=== PATIENT | female | born 1960 | race Caucasian/White ===

== ENCOUNTER 2021-07-15 04:56 | Inpatient (IN) | payer MEDICAID ==
[~2021-07-15] VITALS: Ht 162.6 cm; Wt 65.0 kg
[~2021-07-15 04:56] MED LIST: ACET325T21 PO; ACET325T9 PO; ASPI81TA59 PO; ATOR40TA PO; AZIT1PAC PO; CALC-380 PO; DIVA250T PO; LEVE250T30 PO; MELA3TAB43 PO; MODA200T2 PO; MULT1TAB6 PO; ONDA4TAB7 PO; OXYC5TAB4 PO; QUET25TA5 PO; SACC250C8 PO; SENN1TAB62 PO; SENN8.6T99 PO; SERT50TA PO; VENL75TA PO
[2021-07-15] MEDS ORDERED: ONDANSETRON PF 4 MG/2 ML VIAL. IVP ONE (05:15)
[2021-07-15] MEDS ORDERED: fentaNYL PF VIAL 100 MCG/2 ML VIAL IVP ONE (05:15)
[2021-07-15] MEDS ORDERED: IV NORMAL SALINE 1000ML BAG 1,000 ML IV ONE ×2 (05:15→10:45)
[2021-07-15 05:18] LABS: BASO # 0.1 x10^3/uL (0.0-0.2); BASO % 1 % (0-3); EOS % 0 % (0-3); HEMATOCRIT 42.8 % (36.0-47.0); HEMOGLOBIN 13.8 g/dL (12.0-15.5); LYMPH # 1.4 x10^3/uL (1.0-4.8); LYMPH % 12 % (24-48); MEAN CORPUSCULAR HEMOGLOBIN 29 pg (25-35); MEAN CORPUSCULAR HGB CONC 32 g/dL (31-37); MEAN CORPUSCULAR VOLUME 90 fL (79-100); MONO # 0.7 x10^3/uL (0.0-1.1); MONO % 6 % (0-9); NEUT # 10.2 x10^3/uL (1.8-7.7); NEUT % 82 % (31-73); PLATELET COUNT 308 x10^3/uL (140-400); RED BLOOD COUNT 4.74 x10^6/uL (3.50-5.40); RED CELL DISTRIBUTION WIDTH 13.7 % (11.5-14.5); WHITE BLOOD COUNT 12.4 x10^3/uL (4.0-11.0)
[2021-07-15 05:28] LABS: FECAL OB PT NEGATIVE (NEG)
[2021-07-15 05:32] LABS: CALCIUM 9.3 mg/dL (8.5-10.1); GFR 56.2; POTASSIUM 3.7 mmol/L (3.5-5.1)
[2021-07-15 05:39] LABS: ALBUMIN 3.8 g/dL (3.4-5.0); ALBUMIN/GLOBULIN RATIO 0.8 (1.0-1.7); TOTAL BILIRUBIN 0.4 mg/dL (0.2-1.0); TOTAL PROTEIN 8.3 g/dL (6.4-8.2)
--- NOTE | 2021-07-15 05:40 | EKG ---
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
[2021-07-15] MEDS ORDERED: CONTRAST GIVEN. MC PRN (06:00)
[2021-07-15] MEDS ORDERED: ASPIRIN CHEWABLE 81 MG TABLET. PO ONE (06:00)
[2021-07-15] MEDS ORDERED: IOHEXOL 300 MG/ML 100ML VIAL. IV ONE (06:00)
--- NOTE | 2021-07-15 06:09 | PHYS DOC ---
Past Medical History Past Medical History: High Cholesterol, Hypertension Additional Past Medical Histor: ADHD,SUBARACHNOID HEMORRAGE, MRSA Past Surgical History: Other Additional Past Surgical Histo: Laparotomy Smoking Status: Never Smoker Alcohol Use: None Drug Use: None Adult General Chief Complaint Chief Complaint: NAUSEA/VOMITING/DIARRHEA HPI HPI The patient is a 61-year-old female with a history of hyperlipidemia, seizure disorder and depression. She resides in a nursing facility. She presents for evaluation of copious nonbloody vomiting with onset about 24 hours ago. Has vomited greater than 10 times in total. Nursing facility staff felt that vomiting might have intermittently been bloody but patient denies this. Associated focal epigastric discomfort, intermittent and nonradiating. No associated fevers, hematemesis, hematochezia or melena, upper respiratory congestion/rhinorrhea, cough, sore throat, shortness of breath or chest pain of any kind, flank pain, midline back pain, right-sided or lower abdominal pain of any kind, dysuria, hematuria, polyuria or oliguria, changes in bowel habits, pain or swelling to arms or legs. Patient is alert and pleasantly and appropriately interactive, in no acute distress with appropriate vital signs upon initial evaluation here in the emergency department. Review of Systems Review of Systems A 12 point review of systems was completed and was negative except where noted in HPI above. Current Medications Current Medications Current Medications Medications (Trade) Dose Ordered Sig/Abhinav Start Time Stop Time Status Last Admin Dose Admin Aspirin (Aspirin Chewable) 324 mg 1X ONCE 07/15/21 06:00 07/15/21 06:01 Fentanyl Citrate (Fentanyl 2ml Vial) 50 mcg 1X ONCE 07/15/21 05:15 07/15/21 05:16 DC Info (CONTRAST GIVEN -- Rx MONITORING) 1 each PRN DAILY PRN 07/15/21 06:00 07/17/21 05:59 Iohexol (Omnipaque 300 Mg/ml) 60 ml 1X ONCE 07/15/21 06:00 07/15/21 06:01 07/15/21 05:57 60 ML Ondansetron HCl (Zofran) 4 mg 1X ONCE 07/15/21 05:15 07/15/21 05:16 DC 07/15/21 05:15 4 MG Sodium Chloride 1,000 ml @ 1,000 mls/hr 1X ONCE 07/15/21 05:15 07/15/21 06:14 07/15/21 05:15 1,000 MLS/HR Allergies Allergies Allergies Coded Allergies Type Severity Reaction Last Updated Verified codeine Allergy Intermediate 01/22/21 Yes Physical Exam Physical Exam Elderly female appearing nontoxic and in no acute distress. Head is normocephalic and atraumatic. Neck is supple and nontender. Oropharynx is moist. Lungs are clear to auscultation at all stations. There is a normal S1 and S2 without rubs or gallops and capillary refill is appropriate, less than 2 seconds globally. Abdomen is soft, nondistended and with mild focal epigastric tenderness to palpation without rebound or guarding. No right-sided or lower quadrant tenderness to palpation. Skin is warm and dry without cyanosis, clubbing or edema. Psychiatrically, the patient demonstrates appropriate mood and affect and is alert. Current Patient Data Vital Signs Vital Signs Date Time Temp Pulse Resp B/P (MAP) Pulse Ox O2 Delivery O2 Flow Rate FiO2 07/15/21 05:00 98.6 108 15 157/98 (117) 98 Room Air 98.6 Lab Values Laboratory Tests Test 07/15/21 05:05 07/15/21 05:09 Stool Occult Blood Negative (NEG) White Blood Count 12.4 x10^3/uL (4.0-11.0) H Red Blood Count 4.74 x10^6/uL (3.50-5.40) Hemoglobin 13.8 g/dL (12.0-15.5) Hematocrit 42.8 % (36.0-47.0) Mean Corpuscular Volume 90 fL (79-100) Mean Corpuscular Hemoglobin 29 pg (25-35) Mean Corpuscular Hemoglobin Concent 32 g/dL (31-37) Red Cell Distribution Width 13.7 % (11.5-14.5) Platelet Count 308 x10^3/uL (140-400) Neutrophils (%) (Auto) 82 % (31-73) H Lymphocytes (%) (Auto) 12 % (24-48) L Monocytes (%) (Auto) 6 % (0-9) Eosinophils (%) (Auto) 0 % (0-3) Basophils (%) (Auto) 1 % (0-3) Neutrophils # (Auto) 10.2 x10^3/uL (1.8-7.7) H Lymphocytes # (Auto) 1.4 x10^3/uL (1.0-4.8) Monocytes # (Auto) 0.7 x10^3/uL (0.0-1.1) Eosinophils # (Auto) 0.0 x10^3/uL (0.0-0.7) Basophils # (Auto) 0.1 x10^3/uL (0.0-0.2) Sodium Level 144 mmol/L (136-145) Potassium Level 3.7 mmol/L (3.5-5.1) Chloride Level 101 mmol/L (98-107) Carbon Dioxide Level 28 mmol/L (21-32) Anion Gap 15 (6-14) H Blood Urea Nitrogen 23 mg/dL (7-20) H Creatinine 1.0 mg/dL (0.6-1.0) Estimated GFR (Cockcroft-Gault) 56.2 BUN/Creatinine Ratio 23 (6-20) H Glucose Level 160 mg/dL (70-99) H Lactic Acid Level 2.1 mmol/L (0.4-2.0) H Calcium Level 9.3 mg/dL (8.5-10.1) Total Bilirubin 0.4 mg/dL (0.2-1.0) Aspartate Amino Transferase (AST) 12 U/L (15-37) L Alanine Aminotransferase (ALT) 22 U/L (14-59) Alkaline Phosphatase 107 U/L (46-116) Troponin I High Sensitivity 148 ng/L (4-50) H Total Protein 8.3 g/dL (6.4-8.2) H Albumin 3.8 g/dL (3.4-5.0) Albumin/Globulin Ratio 0.8 (1.0-1.7) L Lipase 1057 U/L (73-393) H Laboratory Tests 07/15/21 05:09 Laboratory Tests 07/15/21 05:09 EKG EKG Sinus rhythm, rate 113, no acute ST elevation, minimal ST depressions in lateral leads, MS 118, QRS 84, QTc 500, EP interpretation. Radiology/Procedures Radiology/Procedures [] Course & Med Decision Making Course & Med Decision Making 61-year-old female presenting with copious vomiting and epigastric pain over the last 1 day. Labs remarkable for significant lipase elevation; patient does have a history of multiple prior episodes of acute pancreatitis per Dr. Gil. Patient also has an elevated high-sensitivity troponin without any chest pain or shortness of breath. In context, this is likely reflective of demand ischemia but will give a full-strength aspirin and will trend troponins. Patient also has a degree of lactic acidemia; favor dehydration as a source for this and doubt sepsis. Patient has received IV fluids and pain medication and is resting comfortably on serial reassessments. Case discussed with Dr. Gil who graciously accepts the patient to his service for further inpatient care. We are still pending CT scan of the abdomen and pelvis. Dr. Vega will follow up on results of imaging. Dragon Disclaimer Dragon Disclaimer This electronic medical record was generated, in whole or in part, using a voice recognition dictation system. Departure Departure Impression: Primary Impression: Acute pancreatitis Additional Impression: Demand ischemia Disposition: ADMITTED INPATIENT Condition: STABLE Referrals: RAFIA GIL MD (PCP) Problem Qualifiers Primary Impression: Acute pancreatitis Pancreatitis type: other Acute pancreatitis complication: unspecified Qualified Codes: K85.80 - Other acute pancreatitis without necrosis or infection TIESHA HOLLINGSWORTH MD Jul 15, 2021 06:09
[2021-07-15] MEDS ORDERED: IV DEXTROSE 5%-LACT RINGERS 1,000 ML IV ONE (06:15)
[2021-07-15] MEDS ORDERED: fentaNYL PF VIAL 100 MCG/2 ML VIAL IVP PRN (06:15)
--- NOTE | 2021-07-15 07:10 | RAD ---
Exam: CT abdomen/pelvis with intravenous contrast Indication: Abdominal pain, worse upper. Intractable vomiting for 24 hours Comparison: CT abdomen pelvis 03/06/2021 Technique: Helical CT imaging performed of the abdomen and pelvis after the intravenous administratio n of 60 mL Omnipaque 300 contrast. Sagittal and coronal reformats were obtained. One or more of the following individualized dose reduction techniques were utilized for this examinat ion: 1. Automated exposure control 2. Adjustment of the mA and/or kV according to patient size 3. Use of iterative reconstruction technique. Findings: Lower chest: Lung bases are clear. The heart is normal in size. Liver: Normal. Gallbladder/Biliary Tree: Gallbladder is normal. Bile ducts are normal. Pancreas: The pancreas is similar in appearance with heterogeneous appearance of the pancreatic head and mild surrounding fat stranding. Unchanged mild dilation of the pancreatic duct in the pancreatic head and neck and an adjacent cystic structure in the pancreatic head. Unchanged ill-defined cystic s tructures along the pancreaticoduodenal groove and abutting the the body of the right lateral aspect of the first portion the duodenum. There are also calcifications the pancreatic head. Spleen: Normal. There Adrenal Glands: Normal Kidneys/Ureters/Bladder: Normal. No hydronephrosis. Reproductive Organs: There are small fibroids in the uterus. Ovaries are unremarkable. Stomach, small bowel, and colon: There is a small hiatal hernia. There is wall thickening of the seco nd portion of the duodenum, which may be reactive to the pancreatic process. No small bowel obstructi on. The appendix is normal. There is sigmoid diverticulosis without acute diverticulitis. Vasculature: No aortic aneurysm. Mild calcified aortoiliac atherosclerosis. Lymph Nodes: Small ramón hepatis lymph node. Peritoneum and retroperitoneum: No free fluid or free air. There is an IVC filter in place with tip b elow the renal veins and tines extending slightly through the wall of the IVC. Bones: Unchanged old L2 compression fracture with 30 percent vertebral body height and no retropulsio n of cortex. There is a sclerotic lesion in the right femoral head neck junction with chondroid appea ring matrix, likely an enchondroma. Miscellaneous: None. IMPRESSION: 1. Unchanged appearance of the pancreas with findings suspicious for acute on chronic pancreatitis. T here is persistent mild dilation of the main pancreatic duct in the pancreatic head and neck and a tu bular cystic structure in the pancreatic head. There also unchanged cystic structures along the pancr eaticoduodenal groove and first portion of the duodenum which could be pseudocysts. Findings may ref lect sequela of groove-type pancreatitis. 2. Small hiatal hernia. 3. A retrievable IVC filter is noted, and the referring physician is encouraged to ensure that a yan gement plan for this filter is in place. If no such plan is present, referral to an interventional cl inician on a non-emergent basis should be considered. The [employer] appropriatene ss criteria for placement and management of IVC filters can be found on the web at: www.acr.org/quality-safety/appropriateness-criteria/interventional 4. Unchanged old L1 compression fracture. Electronically signed by: Gianna Rivas MD (07/15/2021 7:08 AM) TE
[2021-07-15] MEDS: ONDANSETRON PF 4 MG/2 ML VIAL. IVP PRN ×2 (07:20→20:54)
[2021-07-15 08:15] VITALS: BP 168/83
[2021-07-15] MEDS ORDERED: ACET325T21 PO (10:33)
[2021-07-15] MEDS ORDERED: TRAM50TA PO (10:33)
[2021-07-15] MEDS ORDERED: SERT25TA PO (10:33)
[2021-07-15] MEDS ORDERED: MAG-115 PO (10:33)
[2021-07-15 11:00] VITALS: BP 172/88
--- NOTE | 2021-07-15 11:17 | NUR ---
Consults called to Dr. Nunn and Dr. Metz at the request of Dr. Wilde for acute pancreatitis and increased troponin levels.
--- NOTE | 2021-07-15 12:08 | PDOC2 ---
GI CONSULT Date of Service: DATE: 07/15/21 TIME: 11:56 Reason For Consult: pancreatitis HPI: HPI: 61 y/o female w/ h/o pancreatitis - alcohol history though doesn't drink any more. Evaluated in ER w/ upper abdominal pain w/ n/v. Denies reflux/heartburn, dysphagia, hematemesis, diarrhea, constipation (though didn't stool yesterday because didn't eat anything), hematochezia, or melena. Feeling well until this started a day or so ago. No previous EGD or colonoscopy. Past (in 2020) GB imaging, CA19-9, and IgG4 unremarkable. MRCP noted possible duodenitis, possible pseudocyst, and probable duodenal diverticulum. PMH: PMH: subarachnoid hemorrhoid, seizures, HLD, depression, anxiety laparoscopy FH: Family History: No pertinent hx (no pancreatitis) ROS: GEN: Denies fevers, chills, sweats HEENT: Denies blurred vision, sore throat CV: Denies chest pain RESP: Denies shortness of air, cough GI: Per HPI : Denies hematuria, dysuria ENDO: Denies weight changes NEURO: Denies confusion, dizziness MSK: Denies weakness, joint pain/swelling SKIN: Denies jaundice, pruritus Vitals: Vitals: Vital Signs Date Time Temp Pulse Resp B/P (MAP) Pulse Ox O2 Delivery O2 Flow Rate FiO2 07/15/21 07:44 98 191/93 (125) 97 Room Air 07/15/21 05:00 98.6 15 98.6 Labs: Labs: Laboratory Tests Test 07/15/21 05:05 07/15/21 05:09 Stool Occult Blood Negative (NEG) White Blood Count 12.4 x10^3/uL (4.0-11.0) Red Blood Count 4.74 x10^6/uL (3.50-5.40) Hemoglobin 13.8 g/dL (12.0-15.5) Hematocrit 42.8 % (36.0-47.0) Mean Corpuscular Volume 90 fL (79-100) Mean Corpuscular Hemoglobin 29 pg (25-35) Mean Corpuscular Hemoglobin Concent 32 g/dL (31-37) Red Cell Distribution Width 13.7 % (11.5-14.5) Platelet Count 308 x10^3/uL (140-400) Neutrophils (%) (Auto) 82 % (31-73) Lymphocytes (%) (Auto) 12 % (24-48) Monocytes (%) (Auto) 6 % (0-9) Eosinophils (%) (Auto) 0 % (0-3) Basophils (%) (Auto) 1 % (0-3) Neutrophils # (Auto) 10.2 x10^3/uL (1.8-7.7) Lymphocytes # (Auto) 1.4 x10^3/uL (1.0-4.8) Monocytes # (Auto) 0.7 x10^3/uL (0.0-1.1) Eosinophils # (Auto) 0.0 x10^3/uL (0.0-0.7) Basophils # (Auto) 0.1 x10^3/uL (0.0-0.2) Sodium Level 144 mmol/L (136-145) Potassium Level 3.7 mmol/L (3.5-5.1) Chloride Level 101 mmol/L (98-107) Carbon Dioxide Level 28 mmol/L (21-32) Anion Gap 15 (6-14) Blood Urea Nitrogen 23 mg/dL (7-20) Creatinine 1.0 mg/dL (0.6-1.0) Estimated GFR (Cockcroft-Gault) 56.2 BUN/Creatinine Ratio 23 (6-20) Glucose Level 160 mg/dL (70-99) Lactic Acid Level 2.1 mmol/L (0.4-2.0) Calcium Level 9.3 mg/dL (8.5-10.1) Total Bilirubin 0.4 mg/dL (0.2-1.0) Aspartate Amino Transf (AST/SGOT) 12 U/L (15-37) Alanine Aminotransferase (ALT/SGPT) 22 U/L (14-59) Alkaline Phosphatase 107 U/L (46-116) Troponin I High Sensitivity 148 ng/L (4-50) Total Protein 8.3 g/dL (6.4-8.2) Albumin 3.8 g/dL (3.4-5.0) Albumin/Globulin Ratio 0.8 (1.0-1.7) Lipase 1057 U/L (73-393) Allergies: Coded Allergies: codeine (Verified Allergy, Intermediate, 01/22/21) Medications: Current Medications Medications (Trade) Dose Ordered Sig/Abhinav Route PRN Reason Start Time Stop Time Status Last Admin Dose Admin Ondansetron HCl (Zofran) 4 mg 1X ONCE IVP 07/15/21 05:15 07/15/21 05:16 DC 07/15/21 05:15 Sodium Chloride 1,000 ml @ 1,000 mls/hr 1X ONCE IV 07/15/21 05:15 07/15/21 06:14 DC 07/15/21 05:15 Iohexol (Omnipaque 300 Mg/ml) 60 ml 1X ONCE IV 07/15/21 06:00 07/15/21 06:01 DC 07/15/21 05:57 Aspirin (Aspirin Chewable) 324 mg 1X ONCE PO 07/15/21 06:00 07/15/21 06:01 DC 07/15/21 06:18 Ondansetron HCl (Zofran) 4 mg PRN Q8HRS PRN IVP NAUSEA/VOMITING 07/15/21 06:15 07/16/21 06:14 07/15/21 07:20 Dextrose/Lactated Ringer's 1,000 ml @ 125 mls/hr 1X ONCE IV 07/15/21 06:15 07/15/21 14:14 07/15/21 07:20 Sodium Chloride 1,000 ml @ 1,000 mls/hr 1X ONCE IV 07/15/21 10:45 07/15/21 11:44 DC 07/15/21 10:52 Imaging: Imaging: CT A/P IMPRESSION: 1. Unchanged appearance of the pancreas with findings suspicious for acute on chronic pancreatitis. There is persistent mild dilation of the main pancreatic duct in the pancreatic head and neck and a tubular cystic structure in the pancreatic head. There also unchanged cystic structures along the pancr eaticoduodenal groove and first portion of the duodenum which could be pseudocysts. Findings may reflect sequela of groove-type pancreatitis. 2. Small hiatal hernia. 3. A retrievable IVC filter is noted, and the referring physician is encouraged to ensure that a management plan for this filter is in place. If no such plan is present, referral to an interventional clinician on a non-emergent basis should be considered. The [employer] appropriateness criteria for placement and management of IVC filters can be found on the web at:www.acr.org/quality-safety/appropriateness-criteria/interventional 4. Unchanged old L1 compression fracture. PE: GEN: NAD HEENT: Atraumatic, PERRL LUNGS: CTAB HEART: borderline tachcyardia ABD: NABS, S/ND, epigastric discomfort (muscular, suspect from repeated emesis) EXTREMITY: No edema SKIN: No rashes, no jaundice NEURO/PSYCH: A & O 3 - was sleeping A/P: A/P: Acute/chronic pancreatitis - h/o heavy alcohol use, now sober - past workup as above Leukocytosis, elevated troponin, elevated lactic acid CRC screen - none -- Supportive care GI-gilmore w/ IVF, anti-emetics, pain control per primary. Consider trial of clears soon. 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 GRACIA GA Jul 15, 2021 12:08
--- NOTE | 2021-07-15 12:17 | NUR ---
Call placed to Dr. Wilde to notify him that patient is refusing lab draws, awaiting callback.
--- NOTE | 2021-07-15 12:29 | NUR ---
SS following for discharge planning. SS reviewed pt chart and discussed with pt RN. Pt is LTC resident from [facility], ; fax [phone]. Pt is currently on room air. GI and Cardiology following. COVID19 test required for placement. SS will continue to follow for discharge planning.
[2021-07-15] MEDS: POTASSIUM CL 20MEQ D5-0.45NACL 1,000 ML IV SCH (12:49)
[2021-07-15] MEDS: PANTOPRAZOLE IV PUSH 40 MG VIAL. IVP SCH (12:51)
--- NOTE | 2021-07-15 13:58 | PDOC2 ---
RADHA ISLAS PASTRY COOK APPRENTICE 07/15/21 1358: CARDIAC CONSULT DATE OF CONSULT Date of Consult DATE: 07/15/21 TIME: 13:41 REASON FOR CONSULT Reason for Consult: Elevated troponin REFERRING PHYSICIAN Referring Physician: Andry SOURCE Source: Chart review, Patient HISTORY OF PRESENT ILLNESS HISTORY OF PRESENT ILLNESS This is a 61 yo female admitted from [facility] facility for intractable vomiting, abdominal pain. Denies any chest pain or SOA. no palpitations. No prior hx of CAD or arrhythmias. She just vomited coffee ground emesis. She has diffuse tenderness to her abdomen. No prior stress test. PAST MEDICAL HISTORY Cardiovascular: HTN, Hyperlipidemia Pulmonary: Other (no pertinent history) CENTRAL NERVOUS SYSTEM: Seizure, Other (cerebral aneurysm; SAH) GI: GERD, Other (pancreatitis) Heme/Onc: Other (DVT RLE) Psych: Anxiety, Depression Renal/: Urinary Incontinence PAST SURGICAL HISTORY Past Surgical History coil embolization of aneurysm of the JUVENTINO, IVC filter FAMILY HISTORY Family History: Family History Unknown CURRENT MEDICATIONS CURRENT MEDICATIONS Current Medications Medications (Trade) Dose Ordered Sig/Abhinav Route PRN Reason Start Time Stop Time Status Last Admin Dose Admin Ondansetron HCl (Zofran) 4 mg 1X ONCE IVP 07/15/21 05:15 07/15/21 05:16 DC 07/15/21 05:15 Sodium Chloride 1,000 ml @ 1,000 mls/hr 1X ONCE IV 07/15/21 05:15 07/15/21 06:14 DC 07/15/21 05:15 Iohexol (Omnipaque 300 Mg/ml) 60 ml 1X ONCE IV 07/15/21 06:00 07/15/21 06:01 DC 07/15/21 05:57 Aspirin (Aspirin Chewable) 324 mg 1X ONCE PO 07/15/21 06:00 07/15/21 06:01 DC 07/15/21 06:18 Ondansetron HCl (Zofran) 4 mg PRN Q8HRS PRN IVP NAUSEA/VOMITING 07/15/21 06:15 07/16/21 06:14 07/15/21 07:20 Dextrose/Lactated Ringer's 1,000 ml @ 125 mls/hr 1X ONCE IV 07/15/21 06:15 07/15/21 14:14 07/15/21 07:20 Sodium Chloride 1,000 ml @ 1,000 mls/hr 1X ONCE IV 07/15/21 10:45 07/15/21 11:44 DC 07/15/21 10:52 Potassium Chloride/Dextrose/ Sod Cl 1,000 ml @ 100 mls/hr Q10H IV 07/15/21 11:30 07/15/21 12:49 Pantoprazole Sodium (PROTONIX VIAL for IV PUSH) 40 mg DAILYAC IVP 07/15/21 13:00 07/15/21 12:51 ALLERGIES ALLERGIES: Coded Allergies: codeine (Verified Allergy, Intermediate, 01/22/21) ROS Review of System 14 point ROS evaluated with pertinent positives noted per HPI PHYSICAL EXAM General: Alert, Oriented X3, Cooperative, No acute distress HEENT: Atraumatic, Mucous membr. moist/pink Lungs: Other (diminished bases) Heart: Regular rate (SR/ST), Normal S1, Normal S2, No murmurs Abdomen: Other (diffuse abd tenderness) Extremities: No cyanosis, No edema Skin: No breakdown, No significant lesion Neuro: Normal speech, Sensation intact Psych/Mental Status: Mental status NL, Other (flat affect) MUSCULOSKELETAL: Osteoarthritic changes both hands VITALS/I&O VITALS/I&O: Vital Signs Date Time Temp Pulse Resp B/P (MAP) Pulse Ox O2 Delivery O2 Flow Rate FiO2 07/15/21 08:15 98.1 97 18 168/83 (111) 95 98.1 07/15/21 07:44 Room Air I & O 07/14/21 07/14/21 07/15/21 15:00 23:00 07:00 Intake Total 1000 ml Balance 1000 ml LABS Lab: Laboratory Tests Test 07/15/21 05:05 07/15/21 05:09 Stool Occult Blood Negative (NEG) White Blood Count 12.4 x10^3/uL (4.0-11.0) H Red Blood Count 4.74 x10^6/uL (3.50-5.40) Hemoglobin 13.8 g/dL (12.0-15.5) Hematocrit 42.8 % (36.0-47.0) Mean Corpuscular Volume 90 fL (79-100) Mean Corpuscular Hemoglobin 29 pg (25-35) Mean Corpuscular Hemoglobin Concent 32 g/dL (31-37) Red Cell Distribution Width 13.7 % (11.5-14.5) Platelet Count 308 x10^3/uL (140-400) Neutrophils (%) (Auto) 82 % (31-73) H Lymphocytes (%) (Auto) 12 % (24-48) L Monocytes (%) (Auto) 6 % (0-9) Eosinophils (%) (Auto) 0 % (0-3) Basophils (%) (Auto) 1 % (0-3) Neutrophils # (Auto) 10.2 x10^3/uL (1.8-7.7) H Lymphocytes # (Auto) 1.4 x10^3/uL (1.0-4.8) Monocytes # (Auto) 0.7 x10^3/uL (0.0-1.1) Eosinophils # (Auto) 0.0 x10^3/uL (0.0-0.7) Basophils # (Auto) 0.1 x10^3/uL (0.0-0.2) Sodium Level 144 mmol/L (136-145) Potassium Level 3.7 mmol/L (3.5-5.1) Chloride Level 101 mmol/L (98-107) Carbon Dioxide Level 28 mmol/L (21-32) Anion Gap 15 (6-14) H Blood Urea Nitrogen 23 mg/dL (7-20) H Creatinine 1.0 mg/dL (0.6-1.0) Estimated GFR (Cockcroft-Gault) 56.2 BUN/Creatinine Ratio 23 (6-20) H Glucose Level 160 mg/dL (70-99) H Lactic Acid Level 2.1 mmol/L (0.4-2.0) H Calcium Level 9.3 mg/dL (8.5-10.1) Total Bilirubin 0.4 mg/dL (0.2-1.0) Aspartate Amino Transferase (AST) 12 U/L (15-37) L Alanine Aminotransferase (ALT) 22 U/L (14-59) Alkaline Phosphatase 107 U/L (46-116) Troponin I High Sensitivity 148 ng/L (4-50) H Total Protein 8.3 g/dL (6.4-8.2) H Albumin 3.8 g/dL (3.4-5.0) Albumin/Globulin Ratio 0.8 (1.0-1.7) L Lipase 1057 U/L (73-393) H Laboratory Tests 07/15/21 05:09 Laboratory Tests 07/15/21 05:09 ASSESSMENT/PLAN ASSESSMENT/PLAN 1. Acute pancreatitis; recurrent. GI following 2. HTN: labile 3. Mild troponin elevation. EKG suspicious for possible ischemic changes. No CP 4. HLP 5. 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 Hx of SAH and seizures 7. Lactic acidosis 8. Suspect erosive gastritis: coffee ground emesis Recommendations 1. Rectal ASA x1. Start statin when able to take PO 2. TTE, and FLP. Trend troponin 3. Start on IV lopressor. 4. Ischemic workup when pancreatitis is resolved MARY ALICE SORENSON MD 07/15/21 6367: CARDIAC CONSULT ASSESSMENT/PLAN ASSESSMENT/PLAN Pt. seen and examined. Agree with above PROBLEM MANAGER note. Patient presenting with concerns for acute pancreatitis. EKG does suggest global ischemia in the setting of critical illness. Given prior gastritis, risks of anticoagulation outweight benefits. Monitor for now. Await TTE. Supportive care. RADHA ISLAS PASTRY COOK APPRENTICE Jul 15, 2021 13:58 MARY ALICE SORENSON MD Jul 15, 2021 22:18
--- NOTE | 2021-07-15 14:13 | EKG ---
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
[2021-07-15 14:19] LABS: CHOLESTEROL/HDL RATIO 3.1
[2021-07-15] MEDS ORDERED: ASPIRIN RECTAL 300 MG SUPP. PR ONE (14:45)
[2021-07-15 15:00] VITALS: BP 194/81
[2021-07-15] MEDS: METOPROLOL IV PUSH 5 MG/5 ML VIAL. IVP SCH ×2 (15:11→18:24)
[2021-07-15 19:00] VITALS: BP 165/90
[2021-07-15] MEDS ORDERED: ONDANSETRON ODT 4 MG TAB.RAPDIS. PO ONE (21:00)
[2021-07-15 23:00] VITALS: BP_SYST 136; BP_SYST 145; BP_DIAS 81; BP_DIAS 85
[2021-07-16] MEDS: METOPROLOL IV PUSH 5 MG/5 ML VIAL. IVP SCH ×5 (00:42→23:14)
[2021-07-16] MEDS: POTASSIUM CL 20MEQ D5-0.45NACL 1,000 ML IV SCH ×4 (00:42→23:15)
[2021-07-16] MEDS: ONDANSETRON PF 4 MG/2 ML VIAL. IVP PRN ×3 (03:15→18:09)
[2021-07-16] MEDS: fentaNYL PF VIAL 100 MCG/2 ML VIAL IVP PRN ×2 (03:15→09:13)
[2021-07-16 07:00] VITALS: BP 183/92
[2021-07-16] MEDS: PANTOPRAZOLE IV PUSH 40 MG VIAL. IVP SCH (08:00)
--- NOTE | 2021-07-16 08:03 | NUR ---
IV fluids nonadministered by this RN. Previous bag still infusing, refer to EMAR for additional details.
[2021-07-16 09:17] LABS: BASO % 0 % (0-3); EOS % 0 % (0-3); HEMATOCRIT 42.6 % (36.0-47.0); HEMOGLOBIN 13.6 g/dL (12.0-15.5); LYMPH # 1.8 x10^3/uL (1.0-4.8); LYMPH % 13 % (24-48); MEAN CORPUSCULAR HEMOGLOBIN 29 pg (25-35); MEAN CORPUSCULAR HGB CONC 32 g/dL (31-37); MEAN CORPUSCULAR VOLUME 91 fL (79-100); MONO # 1.2 x10^3/uL (0.0-1.1); MONO % 8 % (0-9); NEUT # 11.2 x10^3/uL (1.8-7.7); NEUT % 79 % (31-73); PLATELET COUNT 272 x10^3/uL (140-400); RED CELL DISTRIBUTION WIDTH 13.9 % (11.5-14.5); WHITE BLOOD COUNT 14.2 x10^3/uL (4.0-11.0)
--- NOTE | 2021-07-16 09:49 | PDOC ---
Date of Service: DATE: 07/16/21 TIME: 09:45 Subjective: Subjective: Not feeling great, pain about the same, reports vomiting ~2 hours ago. Objective: Vital Signs: Vital Signs Date Time Temp Pulse Resp B/P (MAP) Pulse Ox O2 Delivery O2 Flow Rate FiO2 07/16/21 08:12 Room Air 07/16/21 07:00 98.7 99 20 183/92 (122) 94 98.7 Labs: Laboratory Tests Test 07/15/21 13:45 07/15/21 16:30 07/16/21 08:25 Lactic Acid Level 2.1 mmol/L Troponin I High Sensitivity 146 ng/L 129 ng/L Triglycerides Level 64 mg/dL Cholesterol Level 191 mg/dL LDL Cholesterol, Calculated 117 mg/dL VLDL Cholesterol, Calculated 13 mg/dL Non-HDL Cholesterol Calculated 130 mg/dL HDL Cholesterol 61 mg/dL Cholesterol/HDL Ratio 3.1 White Blood Count 14.2 x10^3/uL Red Blood Count 4.70 x10^6/uL Hemoglobin 13.6 g/dL Hematocrit 42.6 % Mean Corpuscular Volume 91 fL Mean Corpuscular Hemoglobin 29 pg Mean Corpuscular Hemoglobin Concent 32 g/dL Red Cell Distribution Width 13.9 % Platelet Count 272 x10^3/uL Neutrophils (%) (Auto) 79 % Lymphocytes (%) (Auto) 13 % Monocytes (%) (Auto) 8 % Eosinophils (%) (Auto) 0 % Basophils (%) (Auto) 0 % Neutrophils # (Auto) 11.2 x10^3/uL Lymphocytes # (Auto) 1.8 x10^3/uL Monocytes # (Auto) 1.2 x10^3/uL Eosinophils # (Auto) 0.0 x10^3/uL Basophils # (Auto) 0.0 x10^3/uL PE: GEN: NAD, resting LUNGS: CTAB HEART: irregular ABD: quiet BS, soft, epigastric discomfort NEURO/PSYCH: A & O 3, sleepy A/P: Acute/chronic pancreatitis Leukocytosis elevated troponin - worse Lactic acidosis - stable -- Ongoing pain, n/v. Some labs pending. Ice chips/sips of water as able. Otherwise continue same/supportive care per GI. May need to consider interval imaging. Justicifation of Admission Dx: Justifications for Admission: Justification of Admission Dx: Yes GRACIA GA Jul 16, 2021 09:49
[2021-07-16 10:10] LABS: ALBUMIN 3.5 g/dL (3.4-5.0); ALBUMIN/GLOBULIN RATIO 0.9 (1.0-1.7); CALCIUM 9.1 mg/dL (8.5-10.1); CREATININE 0.8 mg/dL (0.6-1.0); GFR 72.7; POTASSIUM 3.6 mmol/L (3.5-5.1); TOTAL BILIRUBIN 0.4 mg/dL (0.2-1.0); TOTAL PROTEIN 7.6 g/dL (6.4-8.2)
[2021-07-16 11:00] VITALS: BP 179/87
--- NOTE | 2021-07-16 11:53 | HP ---
DATE OF SERVICE: 07/16/2021 ADMIT DATE: 07/15/2021 HISTORY OF PRESENT ILLNESS: The patient is a 61-year-old female patient, a resident at [facility], who was brought to the Emergency Room of [facility] with a complaint of copious nonbloody vomiting with onset about 24 hours prior to arrival. She has vomited greater than 10 times in total. Nursing facility staff felt that the vomits have been intermittently bloody. The patient denies that. She did complain of associated focal epigastric discomfort intermittent and nonradiating. No associated fever, hematemesis, hematochezia or melena. She was extensively investigated in the Emergency Room with imaging studies and lab work, did have an episode of acute pancreatitis for which she was admitted to this facility on 01/22/2021 and another episode in 02/2021. At that time, she had had a CT scan of the abdomen and also MRI of the abdomen. In the Emergency Room, she had a lab work, which showed mild leukocytosis. Her chemistry was remarkable for elevated troponin at 148 as well as markedly elevated lipase of 1057 and therefore, the patient was admitted with acute pancreatitis, kept n.p.o., started on IV fluids, IV pain medication and antiemetic and we did consult the Cardiology team for evaluation of her elevated troponin. PAST MEDICAL HISTORY: Significant for: 1. 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 2. Hypertension. 3. Hyperlipidemia. 4. Generalized anxiety and major depression. 5. Muscle weakness. 6. Tobacco use. 7. History of methicillin-resistant Staphylococcus aureus infection. PAST SURGICAL HISTORY: Significant for IVC filter placement for deep vein thrombosis of her right lower extremity and coil embolization of her anterior communicating artery aneurysm. ALLERGIES: SHE IS ALLERGIC TO CODEINE. FAMILY HISTORY: Noncontributory. SOCIAL HISTORY: She is single, currently resides at [facility]. She apparently continues to smoke, but does not drink alcohol or use recreational drugs. REVIEW OF SYSTEMS: As per history of present illness. MEDICATIONS: She is currently on atorvastatin calcium 40 mg at bedtime, aspirin 81 mg once a day, tramadol 50 mg every 6 hours, acetaminophen 650 mg every 4 hours as needed. She is also on levetiracetam 250 mg twice a day, sertraline 37.5 mg daily, modafinil 200 mg once a day, Mylanta 15 mL after meals and as needed, ondansetron 4 mg every 6 hours, melatonin 5 mg at bedtime. PHYSICAL EXAMINATION: GENERAL: On arrival to the Emergency Room, the patient was mildly distressed, but no pallor, jaundice, cyanosis or thyromegaly. No jugular venous distention. No limb edema. VITAL SIGNS: Her heart rate was 109, blood pressure was 157/98, temperature was 98.4, respiratory rate was 16 and oxygen saturation was 97% on room air. HEAD, EYES, EARS, NOSE, AND THROAT: Normocephalic, atraumatic. NECK: Supple. HEART: Showed normal first and second heart sounds. No gallop, rub or murmur. CHEST: Showed central trachea, equal bilateral chest expansion, air entry, vesicular breath sounds. No crepitation or rhonchi. ABDOMEN: Distended with tenderness mostly in the epigastric area. There is no guarding or rigidity. No organomegaly with hernial orifice intact. Bowel sounds normal. NEUROLOGIC: She is awake, alert, responding appropriately. All cranial nerves intact. She moves upper extremities without difficulty; however, she is mostly bedbound, wheelchair bound. LABORATORY DATA: Her lab work on arrival showed a white cell count of 12.4, hemoglobin 13.8, hematocrit 42.8, MCV 90 and platelet count 308,000 with manual differential showing 82% polymorphs, 12% lymphocytes. Her chemistry showed a serum sodium 144, potassium 3.7, chloride 101, bicarbonate 28, anion gap of 15, BUN 23, creatinine 1, estimated GFR was 56 mL per minute. Her glucose 160. Lactic acid was 2.1, calcium was 9.3. Total bilirubin, AST, ALT, alkaline phosphatase were normal. Her first troponin was high at 148. Total protein was 8.3, albumin was 3.8. Her serum lipase was 1057. Her stool for occult blood was negative. She did have CT scan of the abdomen and pelvis, which basically showed unchanged appearance of the pancreas with findings suspicious for [id number] pancreatitis. There is persistent mild dilatation of the main pancreatic duct in the pancreatic head and neck and a tubular cystic structure in the pancreatic head and there is also unchanged cystic structure along the pancreaticoduodenal groove and first portion of the duodenum, which could be pseudocyst. 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 She has small hiatal hernia. A retrievable IVC filter is noted and the referring physician encouraged to ensure that management plan for this filter is in place. She has also unchanged old L1 compression fracture. ASSESSMENT AND PLAN: Therefore, the patient was admitted with [id number] pancreatitis. This is actually a third episode. She was seen before by the mechanical manufacturing engineer and in fact, they discontinued her valproic acid as well as Lasix and she did have an MRI of the abdomen and CT scan before as well as ultrasound. All of them were unrevealing. The patient was started on IV fluid, kept n.p.o., will continue with IV pain medication as well as antiemetic and we will repeat on her lab work once her symptoms improve and serum lipase trends down, then we can start her on a clear liquid diet. YE DR: Lyndsey TID: [id number]
--- NOTE | 2021-07-16 11:59 | PDOC ---
RADHA ISLAS QUILT MAKER 07/16/21 1159: CARDIO Progress Notes Date and Time Date of Service 07/16/2021 Time of Evaluation 1140 Subjective Subjective: No Chest Pain, No shortness of breath, No Palpitations Vitals Vitals Vital Signs Date Time Temp Pulse Resp B/P (MAP) Pulse Ox O2 Delivery O2 Flow Rate FiO2 07/16/21 11:35 99 179/87 07/16/21 11:00 98.9 20 95 Room Air 98.9 Weight Weight [ ] Input and Output Intake and Output Intake and Output 07/16/21 07:00 Output Total 275 ml Balance -275 ml Output Urine Total 200 ml Emesis 75 ml # Voids 8 Laboratory Labs Laboratory Tests Test 07/15/21 13:45 07/15/21 16:30 07/16/21 08:25 Lactic Acid Level 2.1 mmol/L (0.4-2.0) Troponin I High Sensitivity 146 ng/L (4-50) 129 ng/L (4-50) Triglycerides Level 64 mg/dL (0-150) Cholesterol Level 191 mg/dL (0-200) LDL Cholesterol, Calculated 117 mg/dL (0-100) VLDL Cholesterol, Calculated 13 mg/dL (0-40) Non-HDL Cholesterol Calculated 130 mg/dL (0-129) HDL Cholesterol 61 mg/dL (40-60) Cholesterol/HDL Ratio 3.1 White Blood Count 14.2 x10^3/uL (4.0-11.0) Red Blood Count 4.70 x10^6/uL (3.50-5.40) Hemoglobin 13.6 g/dL (12.0-15.5) Hematocrit 42.6 % (36.0-47.0) Mean Corpuscular Volume 91 fL (79-100) Mean Corpuscular Hemoglobin 29 pg (25-35) Mean Corpuscular Hemoglobin Concent 32 g/dL (31-37) Red Cell Distribution Width 13.9 % (11.5-14.5) Platelet Count 272 x10^3/uL (140-400) Neutrophils (%) (Auto) 79 % (31-73) Lymphocytes (%) (Auto) 13 % (24-48) Monocytes (%) (Auto) 8 % (0-9) Eosinophils (%) (Auto) 0 % (0-3) Basophils (%) (Auto) 0 % (0-3) Neutrophils # (Auto) 11.2 x10^3/uL (1.8-7.7) Lymphocytes # (Auto) 1.8 x10^3/uL (1.0-4.8) Monocytes # (Auto) 1.2 x10^3/uL (0.0-1.1) Eosinophils # (Auto) 0.0 x10^3/uL (0.0-0.7) Basophils # (Auto) 0.0 x10^3/uL (0.0-0.2) Sodium Level 140 mmol/L (136-145) Potassium Level 3.6 mmol/L (3.5-5.1) Chloride Level 103 mmol/L (98-107) Carbon Dioxide Level 26 mmol/L (21-32) Anion Gap 11 (6-14) Blood Urea Nitrogen 15 mg/dL (7-20) Creatinine 0.8 mg/dL (0.6-1.0) Estimated GFR (Cockcroft-Gault) 72.7 BUN/Creatinine Ratio 19 (6-20) Glucose Level 171 mg/dL (70-99) Calcium Level 9.1 mg/dL (8.5-10.1) Total Bilirubin 0.4 mg/dL (0.2-1.0) Aspartate Amino Transf (AST/SGOT) 14 U/L (15-37) Alanine Aminotransferase (ALT/SGPT) 17 U/L (14-59) Alkaline Phosphatase 90 U/L (46-116) Total Protein 7.6 g/dL (6.4-8.2) Albumin 3.5 g/dL (3.4-5.0) Albumin/Globulin Ratio 0.9 (1.0-1.7) Lipase 6684 U/L (73-393) Physical Exam HEENT: Neck Supple W Full Motion Chest: Symmetric LUNGS: Clear to Auscultation Heart: RRR (SR) Abdomen: Other (diffuse abd tenderness) Extremities: No Edema Neurology: alert, oriented, follow commands Assessment Assessment 1. Acute pancreatitis; recurrent. GI following 2. HTN: labile 3. Mild troponin elevation. EKG suspicious for possible ischemic changes. No CP 4. HLP 5. 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 Hx of SAH and seizures 7. Lactic acidosis 8. Suspect erosive gastritis: coffee ground emesis, none further. Hgb normal Recommendations 1. Rectal ASA. Start statin when able to take PO 2. TTE 3. Continue IV lopressor. switch to PO when able 4. Ischemic workup as outpt when pancreatitis is resolved Justicifation of Admission Dx: Justifications for Admission: Justification of Admission Dx: Yes MARY ALICE SORENSON MD 07/17/21 0802: CARDIO Progress Notes Plan Plan Late entry for 07/16/2021 Patient seen and examined. Agree with above nurse practitioner note. RADHA ISLAS QUILT MAKER Jul 16, 2021 11:59 MARY ALICE SORENSON MD Jul 17, 2021 08:02
[2021-07-16] MEDS ORDERED: ASPIRIN RECTAL 300 MG SUPP. PR ONE (12:00)
[2021-07-16 15:00] VITALS: BP 176/85
[2021-07-16 19:00] VITALS: BP 175/93
[2021-07-16] MEDS ORDERED: PROCHLORPERAZINE 10 MG/2 ML VIAL. IV PRN (22:45)
[2021-07-16 23:00] VITALS: BP 145/88
--- NOTE | 2021-07-17 02:22 | PN ---
DATE: 07/16/2021 SUBJECTIVE: The patient was admitted yesterday for third episode of acute pancreatitis. She was kept n.p.o., started on IV fluids, IV pain medication, antiemetic. When I saw her this morning, she continued to have recurrent bouts of nausea, vomiting, continued to complain of epigastric pain; however, she denied any chills, rigors or fever. PHYSICAL EXAMINATION: GENERAL: When I examined her this morning, she was actually resting, slightly propped up in bed, in no apparent respiratory distress. No pallor, jaundice or cyanosis. No lymphadenopathy, no thyromegaly, no jugular venous distention. No lower limb edema. VITAL SIGNS: Her heart rate was 99, blood pressure was 183/92, temperature was 98.7, respiratory rate was 20 and oxygen saturation was 94% on room air. HEAD, EYES, EARS, NOSE, AND THROAT: Normocephalic, atraumatic. NECK: Supple. HEART: Showed normal first and second heart sounds. No gallop, rub or murmur. CHEST: Clear to auscultation, no crepitation or rhonchi. ABDOMEN: Slightly distended. tenderness mostly in the epigastric area. There is no guarding or rigidity. No organomegaly. All hernial orifices are intact. Bowel sounds normal. NEUROLOGIC: She was sleepy, but arousable. All cranial nerves are intact. She moves extremities without difficulty ____ wheelchair bound. Her intake over the last 24 hours and output were incompletely recorded. LABORATORY DATA: This morning showed a white cell count 14.2, hemoglobin 13.6, hematocrit 42, MCV 91, and platelet count 272,000 with normal manual differential. Her chemistry showed a serum sodium 140, potassium 3.6, chloride 103, bicarbonate 26, anion gap of 11, BUN 15, creatinine 0.8, estimated GFR was 73 mL per minute. Her glucose 171, calcium was 9.1. Total bilirubin, AST, ALT, alkaline phosphatase were normal. Her total protein 7.6, albumin 3.5. Her serum triglycerides were only 64, total cholesterol 191, LDL was 117, VLDL was 13, HDL was 61 and the ratio was 3.1. Today's serum lipase has risen dramatically to 6684. ASSESSMENT AND PLAN: Acute on chronic pancreatitis. In fact, this is the third episode since January last year. The patient was kept on IV fluid and she is on fentanyl for pain and ondansetron for nausea, Protonix for gastrointestinal prophylaxis and metoprolol tartrate 5 mg IV every 6 hours for hypertension. We did consult the roto mixer operator as well as the funds transfer clerk. Apparently, the funds transfer clerk recommended ischemic workup once pancreatitis has resolved ____ started on rectal aspirin and arrangement for a transthoracic echocardiogram and fasting lipid profile. MOHAN DR: Lyndsey TID: [id number]
[2021-07-17] MEDS: METOPROLOL IV PUSH 5 MG/5 ML VIAL. IVP SCH (05:57)
[2021-07-17 06:38] LABS: BASO % 0 % (0-3); EOS # 0.1 x10^3/uL (0.0-0.7); EOS % 1 % (0-3); HEMATOCRIT 41.2 % (36.0-47.0); HEMOGLOBIN 13.3 g/dL (12.0-15.5); LYMPH # 2.4 x10^3/uL (1.0-4.8); LYMPH % 21 % (24-48); MEAN CORPUSCULAR HEMOGLOBIN 29 pg (25-35); MEAN CORPUSCULAR HGB CONC 32 g/dL (31-37); MEAN CORPUSCULAR VOLUME 91 fL (79-100); MONO # 1.2 x10^3/uL (0.0-1.1); MONO % 11 % (0-9); NEUT # 7.9 x10^3/uL (1.8-7.7); NEUT % 68 % (31-73); PLATELET COUNT 256 x10^3/uL (140-400); RED BLOOD COUNT 4.52 x10^6/uL (3.50-5.40); RED CELL DISTRIBUTION WIDTH 13.7 % (11.5-14.5); WHITE BLOOD COUNT 11.6 x10^3/uL (4.0-11.0)
[2021-07-17 06:40] LABS: ALBUMIN 3.2 g/dL (3.4-5.0); ALBUMIN/GLOBULIN RATIO 0.7 (1.0-1.7); CALCIUM 8.9 mg/dL (8.5-10.1); CREATININE 0.7 mg/dL (0.6-1.0); GFR 84.8; POTASSIUM 3.4 mmol/L (3.5-5.1); TOTAL BILIRUBIN 0.4 mg/dL (0.2-1.0); TOTAL PROTEIN 7.7 g/dL (6.4-8.2)
[2021-07-17 07:00] VITALS: BP 165/90
[2021-07-17] MEDS: PANTOPRAZOLE IV PUSH 40 MG VIAL. IVP SCH (07:08)
[2021-07-17] MEDS: POTASSIUM CL 20MEQ D5-0.45NACL 1,000 ML IV SCH ×2 (08:48→20:25)
[2021-07-17] MEDS ORDERED: traMADol 50 MG TABLET PO PRN (09:45)
[2021-07-17] MEDS ORDERED: MAG HYDROX/ALUMINUM HYD/SIMETH 30 ML ORAL.SUSP PO PRN (09:45)
[2021-07-17] MEDS ORDERED: ACETAMINOPHEN 325 MG TABLET. PO PRN (09:45)
--- NOTE | 2021-07-17 09:57 | PN ---
DATE: 07/17/2021 SUBJECTIVE: The patient is resting, slightly propped up in bed, in no apparent distress. She was sleepy, but arousable. On questioning her, she is feeling much better. She has no more nausea, no vomiting, no abdominal pain. Her lab work showed that her serum lipase is down to 373. PHYSICAL EXAMINATION: GENERAL: When I examined her, she looked well and was clearly in no apparent respiratory distress. No pallor, jaundice, cyanosis, or thyromegaly. No jugular venous distention. No lower limb edema. VITAL SIGNS: Her heart rate was 93, blood pressure was 165/90, temperature was 98.1, respiratory rate was 16, and oxygen saturation was 94% on room air. HEAD, EYES, EARS, NOSE AND THROAT: Normocephalic, atraumatic. NECK: Supple. HEART: Normal first and second heart sounds. No gallop, rub or murmur. CHEST: Shows central trachea, equal bilateral chest expansion, air entry, vesicular breath sounds. No crepitation or rhonchi. ABDOMEN: Soft, nontender. NEUROLOGIC: She is grossly intact. Her intake was 2000, output was 450. LABORATORY DATA: Her lab work showed a white cell count of 11,600, hemoglobin 13, hematocrit 41, MCV 91, and platelet count of 256 with normal manual differential. Her chemistry showed a serum sodium 141, potassium 3.4, chloride 107, bicarbonate 25, anion gap of 9, BUN 13, creatinine 0.7. Estimated GFR was 85 mL per minute. Her glucose 129, calcium was 8.9. Total bilirubin, AST, ALT, alkaline phosphatase were normal. Total protein 7.7, albumin was 3.2. Her serum lipase was 373. ASSESSMENT: 1. Acute pancreatitis, resolved. Other medical problems include: A. Nontraumatic subarachnoid hemorrhage with rupture of anterior communicating artery aneurysm. B. Hypertension. C. Hyperlipidemia. D. Generalized anxiety and major depression. E. Muscle weakness. F. Tobacco use. PLAN: My plan is to advance her diet as tolerated. I will repeat her lab work again tomorrow and her serum lipase remains stable. He can be discharged back to [facility]. ALYCE DR: Lyndsey TID: [id number]
[2021-07-17] MEDS ORDERED: ONDANSETRON ODT 4 MG TAB.RAPDIS. PO PRN (10:00)
[2021-07-17] MEDS: ASPIRIN CHEWABLE 81 MG TABLET. PO SCH (10:28)
[2021-07-17] MEDS: SERTRALINE 25 MG TABLET. PO SCH (10:28)
[2021-07-17] MEDS: levETIRAcetam 250 MG TABLET PO SCH ×2 (10:28→20:25)
[2021-07-17 10:58] VITALS: BP 161/94
--- NOTE | 2021-07-17 11:11 | PDOC ---
Date of Service: DATE: 07/17/21 TIME: 11:08 Subjective: Subjective: No pain, feeling better, hungry. Asks for pudding for lunch. Objective: Objective: D/w Dr. Wilde - alcohol available at living facility, says she does not partake (though heavy drinker in past as we knew). Vital Signs: Vital Signs Date Time Temp Pulse Resp B/P (MAP) Pulse Ox O2 Delivery O2 Flow Rate FiO2 07/17/21 10:58 97.4 92 18 161/94 (116) 97 97.4 07/17/21 07:12 Room Air Labs: Laboratory Tests Test 07/17/21 05:10 White Blood Count 11.6 x10^3/uL Red Blood Count 4.52 x10^6/uL Hemoglobin 13.3 g/dL Hematocrit 41.2 % Mean Corpuscular Volume 91 fL Mean Corpuscular Hemoglobin 29 pg Mean Corpuscular Hemoglobin Concent 32 g/dL Red Cell Distribution Width 13.7 % Platelet Count 256 x10^3/uL Neutrophils (%) (Auto) 68 % Lymphocytes (%) (Auto) 21 % Monocytes (%) (Auto) 11 % Eosinophils (%) (Auto) 1 % Basophils (%) (Auto) 0 % Neutrophils # (Auto) 7.9 x10^3/uL Lymphocytes # (Auto) 2.4 x10^3/uL Monocytes # (Auto) 1.2 x10^3/uL Eosinophils # (Auto) 0.1 x10^3/uL Basophils # (Auto) 0.0 x10^3/uL Sodium Level 141 mmol/L Potassium Level 3.4 mmol/L Chloride Level 107 mmol/L Carbon Dioxide Level 25 mmol/L Anion Gap 9 Blood Urea Nitrogen 13 mg/dL Creatinine 0.7 mg/dL Estimated GFR (Cockcroft-Gault) 84.8 BUN/Creatinine Ratio 19 Glucose Level 129 mg/dL Calcium Level 8.9 mg/dL Total Bilirubin 0.4 mg/dL Aspartate Amino Transf (AST/SGOT) 15 U/L Alanine Aminotransferase (ALT/SGPT) 18 U/L Alkaline Phosphatase 80 U/L Total Protein 7.7 g/dL Albumin 3.2 g/dL Albumin/Globulin Ratio 0.7 Lipase 373 U/L PE: GEN: NAD LUNGS: CTAB HEART: RRR ABD: S/ND/NT NEURO/PSYCH: A & O 3 - more calm/pleasant today A/P: Recurrent pancreatitis - likely related to past alcohol use, extensive workup as in consult note Leukocytosis - better -- Better today. Try full liquids for lunch, advance as tolerated. Can DC soon [facility] if continues to do well. Continue avoidance of alcohol. Justicifation of Admission Dx: Justifications for Admission: Justification of Admission Dx: Yes GRACIA GA Jul 17, 2021 11:11
--- NOTE | 2021-07-17 11:52 | PDOC ---
RADHA ISLAS STADIUM MANAGER 07/17/21 1152: CARDIO Progress Notes Date and Time Date of Service 07/17/2021 Time of Evaluation 1120 Subjective Subjective: No Chest Pain, No shortness of breath, No Palpitations Vitals Vitals Vital Signs Date Time Temp Pulse Resp B/P (MAP) Pulse Ox O2 Delivery O2 Flow Rate FiO2 07/17/21 10:58 97.4 92 18 161/94 (116) 97 97.4 07/17/21 07:12 Room Air Weight Weight [ ] Input and Output Intake and Output Intake and Output 07/17/21 07:00 Intake Total 2000 ml Output Total 450 ml Balance 1550 ml Intake IV Total 2000 ml Output Urine Total 450 ml # Voids 3 Laboratory Labs Laboratory Tests Test 07/17/21 05:10 White Blood Count 11.6 x10^3/uL (4.0-11.0) Red Blood Count 4.52 x10^6/uL (3.50-5.40) Hemoglobin 13.3 g/dL (12.0-15.5) Hematocrit 41.2 % (36.0-47.0) Mean Corpuscular Volume 91 fL (79-100) Mean Corpuscular Hemoglobin 29 pg (25-35) Mean Corpuscular Hemoglobin Concent 32 g/dL (31-37) Red Cell Distribution Width 13.7 % (11.5-14.5) Platelet Count 256 x10^3/uL (140-400) Neutrophils (%) (Auto) 68 % (31-73) Lymphocytes (%) (Auto) 21 % (24-48) Monocytes (%) (Auto) 11 % (0-9) Eosinophils (%) (Auto) 1 % (0-3) Basophils (%) (Auto) 0 % (0-3) Neutrophils # (Auto) 7.9 x10^3/uL (1.8-7.7) Lymphocytes # (Auto) 2.4 x10^3/uL (1.0-4.8) Monocytes # (Auto) 1.2 x10^3/uL (0.0-1.1) Eosinophils # (Auto) 0.1 x10^3/uL (0.0-0.7) Basophils # (Auto) 0.0 x10^3/uL (0.0-0.2) Sodium Level 141 mmol/L (136-145) Potassium Level 3.4 mmol/L (3.5-5.1) Chloride Level 107 mmol/L (98-107) Carbon Dioxide Level 25 mmol/L (21-32) Anion Gap 9 (6-14) Blood Urea Nitrogen 13 mg/dL (7-20) Creatinine 0.7 mg/dL (0.6-1.0) Estimated GFR (Cockcroft-Gault) 84.8 BUN/Creatinine Ratio 19 (6-20) Glucose Level 129 mg/dL (70-99) Calcium Level 8.9 mg/dL (8.5-10.1) Total Bilirubin 0.4 mg/dL (0.2-1.0) Aspartate Amino Transf (AST/SGOT) 15 U/L (15-37) Alanine Aminotransferase (ALT/SGPT) 18 U/L (14-59) Alkaline Phosphatase 80 U/L (46-116) Total Protein 7.7 g/dL (6.4-8.2) Albumin 3.2 g/dL (3.4-5.0) Albumin/Globulin Ratio 0.7 (1.0-1.7) Lipase 373 U/L (73-393) Physical Exam HEENT: Neck Supple W Full Motion Chest: Symmetric LUNGS: Clear to Auscultation Heart: RRR (SR) Abdomen: Soft N/T Extremities: No Edema Neurology: alert, oriented, follow commands Assessment Assessment 1. Acute pancreatitis; recurrent. GI following. lipase normalized able to take PO 2. HTN: labile 3. Mild troponin elevation. EKG suspicious for possible ischemic changes. No CP 4. HLP 5. 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 Hx of SAH and seizures 7. Lactic acidosis 8. Suspect erosive gastritis: coffee ground emesis, none further. Hgb normal. on PPI Recommendations 1. ASA, statin. replace K 2. TTE pending 3. Start po lopressor and low dose lisinopril 4. Outpt LHC in 1-2 weeks Justicifation of Admission Dx: Justifications for Admission: Justification of Admission Dx: Yes MARY ALICE SORENSON MD 07/17/211934: CARDIO Progress Notes Plan Plan The patient was seen and interviewed as well as examined at the bedside. The chart was reviewed. The case was discussed. Agree with the plan of care. RADHA ISLAS APRN Jul 17, 2021 11:52 MARY ALICE SORENSON MD Jul 17, 2021 19:35
[2021-07-17] MEDS ORDERED: POTASSIUM CHLORIDE 20 MEQ TABLET.ER. PO ONE (12:00)
[2021-07-17] MEDS: LISINOPRIL 5 MG TABLET. PO SCH (12:01)
[2021-07-17] MEDS: METOPROLOL TART IMMED RELEASE 25 MG TABLET. PO SCH ×2 (13:07→20:26)
--- NOTE | 2021-07-17 14:20 | NUR ---
SS following up with discharge planning. SS reviewed pt chart and discussed with pt RN. Pt is LTC resident from [facility], ; fax [phone]. Pt is currently on room air. Cardiology and GI following. COVID19 test requested for placement. Clinical updates phoned and faxed to [facility]. SS will continue to follow for discharge planning.
[2021-07-17 15:00] VITALS: BP 169/81
[2021-07-17 19:00] VITALS: BP 147/83
[2021-07-17] MEDS ORDERED: ATORVASTATIN CALCIUM 40 MG TABLET. PO SCH (21:00)
[2021-07-17] MEDS ORDERED: NON FORMULARY ITEM (Melatonin 1 TAB) PO SCH (21:00)
[2021-07-17 23:00] VITALS: BP 124/77
[2021-07-18 03:00] VITALS: BP 105/58
[2021-07-18] MEDS: fentaNYL PF VIAL 100 MCG/2 ML VIAL IVP PRN (04:45)
[2021-07-18] MEDS: POTASSIUM CL 20MEQ D5-0.45NACL 1,000 ML IV SCH (06:33)
[2021-07-18 07:00] VITALS: BP 127/72
--- NOTE | 2021-07-18 07:04 | NUR ---
After hearing loud noise in pt's room at 0035, pt found on floor by door. Pt stated that she was "trying to get away from these weird people." Redness noted to bilateral buttocks, but no other injury and no c/o pain. Pt assisted back to bed, alarm set, and pt moved to room closer to nurses station. Approximately 0415 when pt up to commode, pt c/o lower back pain. Lumbar x-ray order per Dr Wilde. Pt given dose of pain medicine; currently resting in bed, alarm set, fall precautions in place. Will continue with plan of care.
--- NOTE | 2021-07-18 07:18 | PDOC ---
PROGRESS NOTES Date of Service: DATE: 07/18/21 TIME: 07:18 Subjective Subjective No new complaints Objective Objective Vital Signs Date Time Temp Pulse Resp B/P (MAP) Pulse Ox O2 Delivery O2 Flow Rate FiO2 07/18/21 03:00 97.4 82 16 105/58 (74) 95 Room Air 97.4 Intake and Output 07/18/21 07:00 Intake Total 3018 ml Output Total 500 ml Balance 2518 ml Intake Oral 100 ml IV Total 2918 ml Output Urine Total 500 ml # Voids 5 Physical Exam Abdomen: Other (diffuse abd tenderness) Heart: Regular rate (SR/ST), Normal S1, Normal S2, No murmurs Extremities: No cyanosis, No edema General: Alert, Oriented X3, Cooperative, No acute distress HEENT: Atraumatic, Mucous membr. moist/pink Lungs: Other (diminished bases) MUSCULOSKELETAL: Osteoarthritic changes both hands Neuro: Normal speech, Sensation intact Psych/Mental Status: Mental status NL, Other (flat affect) Skin: No breakdown, No significant lesion Assessment Assessment 1. Acute pancreatitis; recurrent. GI following. lipase normalized able to take PO 2. HTN: labile 3. Mild troponin elevation. EKG suspicious for possible ischemic changes. No CP 4. HLP 5. 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 Hx of SAH and seizures 7. Lactic acidosis 8. Suspect erosive gastritis: coffee ground emesis, none further. Hgb normal. on PPI Recommendations 1. ASA, statin. replace K 2. 2D echo showed normal LV systolic function without any wall motion abnormalities 3. Start po lopressor and low dose lisinopril 4. Plan outpatient ischemic evaluation Plan Plan of Care Problems Medical Problems: (1) Acute pancreatitis Status: Acute (2) Demand ischemia Status: Acute Comment Review of Relevant I have reviewed the following items deven (where applicable) has been applied. Medications Current Medications Acetaminophen (Tylenol) 650 mg PRN Q4HRS PRN PO MILD PAIN 1-3; Start 07/17/21 at 09:45 Al Hydroxide/Mg Hydroxide (Mylanta Plus Xs) 355 ml PRN Q8HRS PRN PO CONSTIPATION; Start 07/17/21 at 09:45 Aspirin (Aspirin Chewable) 81 mg DAILY PO Last administered on 07/17/21at 10:28; Start 07/17/21 at 10:00 Atorvastatin Calcium (Lipitor) 40 mg QHS PO ; Start 07/17/21 at 21:00 Levetiracetam (Keppra) 250 mg BID PO Last administered on 07/17/21at 20:25; Start 07/17/21 at 10:00 Lisinopril (Prinivil) 5 mg DAILY PO Last administered on 07/17/21at 12:01; Start 07/17/21 at 12:00 Metoprolol Tartrate (Lopressor) 25 mg BID PO Last administered on 07/17/21at 20:26; Start 07/17/21 at 13:00 Non-Formulary Medication (Melatonin ) 1 tab QHS PO ; Start 07/17/21 at 21:00; Status UNV Non-Formulary Medication (Modafinil ) 200 mg DAILY PO ; Start 07/18/21 at 09:00; Status UNV Ondansetron HCl (Zofran Odt) 4 mg PRN Q6HRS PRN PO NAUSEA; Start 07/17/21 at 10:00 Pantoprazole Sodium (Protonix) 40 mg DAILYAC PO ; Start 07/18/21 at 07:30 Potassium Chloride (Klor-Con) 20 meq 1X ONCE PO ; Start 07/17/21 at 12:00; Stop 07/17/21 at 12:01; Status UNV Sertraline HCl (Zoloft) 37.5 mg DAILY PO Last administered on 07/17/21at 10:28; Start 07/17/21 at 10:00 Tramadol HCl (Ultram) 50 mg PRN Q6HRS PRN PO MILD TO MODERATE PAIN Last administered on 07/18/21at 03:55; Start 07/17/21 at 09:45 Vitals/I & O Vital Sign - Last 24 Hours 07/17/21 07/17/21 07/17/21 07/17/21 10:58 12:01 13:07 15:00 Temp 97.4 97.6 97.4 97.6 Pulse 92 92 92 95 Resp 18 18 B/P (MAP) 161/94 (116) 161/94 161/94 169/81 (110) Pulse Ox 97 95 07/17/21 07/17/21 07/17/21 07/17/21 19:00 19:54 20:26 23:00 Temp 98.0 98.4 98.0 98.4 Pulse 88 88 75 Resp 18 18 B/P (MAP) 147/83 (104) 147/83 124/77 (93) Pulse Ox 95 94 O2 Delivery Room Air Room Air Room Air 07/18/21 03:00 Temp 97.4 97.4 Pulse 82 Resp 16 B/P (MAP) 105/58 (74) Pulse Ox 95 O2 Delivery Room Air Intake and Output 07/17/21 07/17/21 07/18/21 15:00 23:00 07:00 Intake Total 938 ml 1100 ml 980 ml Output Total 500 ml Balance 438 ml 1100 ml 980 ml JASSON CLARK MD Jul 18, 2021 07:18
[2021-07-18] MEDS ORDERED: PANTOPRAZOLE 40 MG TABLET.DR. PO SCH (07:30)
[2021-07-18] MEDS: SERTRALINE 25 MG TABLET. PO SCH (08:44)
[2021-07-18] MEDS: levETIRAcetam 250 MG TABLET PO SCH (08:44)
[2021-07-18] MEDS: ASPIRIN CHEWABLE 81 MG TABLET. PO SCH (08:44)
[2021-07-18] MEDS: LISINOPRIL 5 MG TABLET. PO SCH (08:44)
[2021-07-18] MEDS: METOPROLOL TART IMMED RELEASE 25 MG TABLET. PO SCH (09:00)
[2021-07-18] MEDS ORDERED: NON FORMULARY ITEM (Modafinil 200 MG) PO SCH (09:00)
--- NOTE | 2021-07-18 09:20 | SNU/HH DC ---
DISCHARGE ORDERS DISCHARGE INFORMATION: DISCHARGE DATE: Jul 18, 2021 FINAL DIAGNOSIS Problems Medical Problems: (1) Acute pancreatitis Status: Acute (2) Demand ischemia Status: Acute CONDITION ON DISCHARGE: Stable CODE STATUS: Code Status: Full HALFWAY: SNF STAY <30 DAYS: Yes POST DISCHARGE ORDERS: ACTIVITY ORDERS: Activity as tolerated WEIGHT BEARING STATUS: Full weight bearing DIET AFTER DISCHARGE: Regular CHECKS AFTER DISCHARGE: CHECKS AFTER DISCHARGE: Check blood press - daily TREATMENT/EQUIPMENT ORDERS: ADAPTIVE EQUIPMENT NEEDED: None Physical Therapy For: Evalulation/Treatment Occupational Therapy For: Evaluation/Treatment DISCHARGE MEDICATIONS: Home Meds Reported Medications Tramadol Hcl (TRAMADOL HCL) 50 Mg Tablet, 50 MG PO Q6HRS PRN for PAIN, TAB 07/15/21 Sertraline Hcl (ZOLOFT) 25 Mg Tablet, 37.5 MG PO DAILY for ANTI-DEPRESSANT, TAB 0 Refills 07/15/21 Mag Hydrox/Aluminum Hyd/Simeth (Mylanta Maximum Strength Liq) 355 Ml Oral.susp, 355 ML PO PRN Q8HRS for indigestion, MISC 07/15/21 Acetaminophen (ACETAMINOPHEN) 325 Mg Tablet, 650 MG PO PRN Q4-6HRS PRN for PAIN, TAB 07/15/21 Ondansetron Hcl (ZOFRAN) 4 Mg Tablet, 1 TAB PO Q6HRS PRN for NAUSEA, #20 TAB 01/22/21 Modafinil (MODAFINIL) 200 Mg Tablet, 200 MG PO DAILY for ADHD, TAB 01/22/21 Melatonin (MELATONIN) 3 Mg Tab.rapdis, 1 TAB PO QHS for sleep for 30 Days, #30 TAB 0 Refills 01/22/21 Atorvastatin Calcium (LIPITOR) 40 Mg Tablet, 1 TAB PO QHS for cholesterol, #90 TAB 1 Refill 01/22/21 Levetiracetam (KEPPRA) 250 Mg Tablet, 1 TAB PO BID for seizures for 30 Days, #60 TAB 0 Refills 01/22/21 Aspirin (Children's Aspirin) 81 Mg Tab.chew, 1 TAB PO DAILY for cardiac health for 30 Days, #30 TAB 0 Refills 01/22/21 RAFIA GIL MD Jul 18, 2021 09:20
[2021-07-18 09:43] LABS: CALCIUM 8.7 mg/dL (8.5-10.1); CREATININE 0.7 mg/dL (0.6-1.0); GFR 84.8; POTASSIUM 3.5 mmol/L (3.5-5.1)
[2021-07-18 11:00] VITALS: BP 110/66
--- NOTE | 2021-07-18 14:29 | RAD ---
AP lumbar spine. HISTORY: Lower back pain, fall AP view was taken of the lumbar spine. There is mild stool in the colon. There is no bowel obstructio n. There is a mild fracture at L3 without definite change compared to the CT from July 15. There is s light scoliosis. IMPRESSION: 1. Mild fracture L3 without change. 2. Slight scoliosis. Electronically signed by: Chuck Luna MD (07/18/2021 2:26 PM) [id number]
--- NOTE | 2021-07-18 16:21 | CARD ---
MR#: [id number] Date of Study: 07/16/2021 Ordering Physician: RADHA ISLAS, Referring Physician: RADHA ISLAS Tech: Issa Richards [facility] APPROVED REPORT EXAM: Two-dimensional and M-mode echocardiogram with Doppler and color Doppler. Other Information Quality : Average Rhythm : NSR INDICATION Elevated troponin (Pancreatitis) RISK FACTORS Hypertension Hyperlipidemia ICV filter 2D DIMENSIONS Left Atrium(2D)3.9 (1.6-4.0cm)IVSd1.1 (0.7-1.1cm) Aortic Root(2D)3.0 (2.0-3.7cm)LVDd5.1 (3.9-5.9cm) LVOT Diameter2.4 (1.8-2.4cm)PWd1.1 (0.7-1.1cm) LA Mxvham67 (18-58mL)LVDs4.2 (2.5-4.0cm) FS (%) 17.9 %SV46.4 ml LVEF(%)37.0 (>50%) Aortic Valve AoV Peak Eze.117.2cm/sAoV VTI22.0cm AO Peak GR.5.5mmHgLVOT Peak Eze.72.8cm/s AO Mean GR.3mmHgAVA (VMAX)2.83cm2 Mitral Valve MV E Teuytvmj28.9cm/sMV DECEL LQQH124pa MV A Bkvhdcvz64.1cm/sE/A Ratio0.7 Pulmonary Valve PV Peak Chzmpdzu395.8cm/s Tricuspid Valve TR P. Mwubjoyx909oj/sTR Peak Gr.14mmHg Pulmonary Vein S1 Uyaqqqxh44.5cm/sD2 Cbdleepi95.4cm/s LEFT VENTRICLE The left ventricle is normal size. There is normal left ventricular wall thickness. The left ventricu lar systolic function is normal. The ejection fraction is 55-60%. There is normal LV segmental wall m otion. Transmitral Doppler flow pattern is Grade I-abnormal relaxation pattern. No left ventricle thr ombus noted on this study. There is no ventricular septal defect visualized. There is no left ventric ular aneurysm. There is no mass noted in the left ventricle. RIGHT VENTRICLE The right ventricle is normal size. There is normal right ventricular wall thickness. The right ventr icular systolic function is normal. ATRIA The left atrium is borderline dilated. The right atrium size is normal. The interatrial septum is int act with no evidence for an atrial septal defect or patent foramen ovale as noted on 2-D or Doppler i maging. AORTIC VALVE The aortic valve is normal in structure and function. Doppler and Color Flow revealed no significant aortic regurgitation. There is no significant aortic valvular stenosis. There is no aortic valvular v egetation. MITRAL VALVE The mitral valve is normal in structure and function. There is no evidence of mitral valve prolapse. There is no mitral valve stenosis. Doppler and Color-flow revealed trace mitral regurgitation. TRICUSPID VALVE The tricuspid valve is normal in structure and function. Doppler and Color Flow revealed trace tricus pid regurgitation. There is no tricuspid valve prolapse or vegetation. There is no tricuspid valve st enosis. PULMONIC VALVE The pulmonary valve is normal in structure and function. Doppler and Color Flow revealed no pulmonic valvular regurgitation. There is no pulmonic valvular stenosis. GREAT VESSELS The aortic root is normal in size. The ascending aorta is normal in size. The pulmonary artery is nor mal. The IVC is normal in size and collapses >50% with inspiration. PERICARDIAL EFFUSION There is no pleural effusion. There is no evidence of significant pericardial effusion. Critical Notification Critical Value: No <Conclusion> The left ventricular systolic function is normal. The ejection fraction is 55-60%. There is normal LV segmental wall motion. Transmitral Doppler flow pattern is Grade I-abnormal relaxation pattern. Trace mitral regurgitation. Trace tricuspid regurgitation. There is no evidence of significant pericardial effusion. Signed by : Dev [place], Electronically Approved : 07/18/2021 16:20:54
== END 2021-07-18 13:30 | DRG 438 ==
LOC: ER 04:56 → 5 NORTH 05:51
PROVIDERS: ADMIT Internal Medicine; ATTEND Internal Medicine
DX: K85.90 Acute pancreatitis without necrosis or infection, unspecified (principal); R65.11 Systemic inflammatory response syndrome (SIRS) of non-infectious origin with acute organ dysfunction; E87.2 Acidosis; I24.8 Other forms of acute ischemic heart disease; R74.8 Abnormal levels of other serum enzymes; E78.00 Pure hypercholesterolemia, unspecified; E78.5 Hyperlipidemia, unspecified; F17.200 Nicotine dependence, unspecified, uncomplicated; F32.9 Major depressive disorder, single episode, unspecified; F41.1 Generalized anxiety disorder; F90.9 Attention-deficit hyperactivity disorder, unspecified type; K21.9 Gastro-esophageal reflux disease without esophagitis; Z20.822 Contact with and (suspected) exposure to COVID-19; G40.909 Epilepsy, unspecified, not intractable, without status epilepticus; I10 Essential (primary) hypertension; K44.9 Diaphragmatic hernia without obstruction or gangrene; K86.1 Other chronic pancreatitis; Z79.899 Other long term (current) drug therapy; Z86.14 Personal history of Methicillin resistant Staphylococcus aureus infection; Z86.718 Personal history of other venous thrombosis and embolism; Z95.828 Presence of other vascular implants and grafts; Z88.5 Allergy status to narcotic agent
CPT/HCPCS: 36415; 72020; 74177; 80048; 80053; 80061; 82274; 83605; 83690; 84484; 85025; 93005; 93306; 96361; 96365; 96375; C9113; J0780; J2060; J2405; J3010; J3480; J3490; J7030; J7121; Q9967; U0003; 99285-25; C8929; G0378